=== PATIENT | male | born 1960 | race Caucasian/White ===

== ENCOUNTER 2018-04-10 18:22 | Emergency (ER) | payer MEDICAID ==
[~2018-04-10] VITALS: Ht 188 cm; Wt 120.2 kg
[~2018-04-10 18:22] MED LIST: AMLO5; ASPI81CH PO; ATOR10 PO; BP MED; CELE200 PO; DOXY100 PO; DULERA 200 MCG/13 GM INH; Daily Multiple1 EACH; Diclofenac Pota50 MG; Flonase 0.05% N16 GM INH; GLUC500; GLUCOPHAGE; HYDACE5 PO; INSDET100 SC; JANUMET XR 50-1 EAC1 PO; LEVO750 PO; LOSA50; LOSA50 PO; LOSARTAN POTAS100 MG PO; METF500; METO50 PO; MULTI VITAMIN1 EACH PO; PRED20 PO; VIIBRYD40 MG PO
[2018-04-10] MEDS ORDERED: Tylenol325 MG PO (20:39)
[2018-04-10] MEDS ORDERED: Percocet 5-3251 EACH PO (20:39)
== END 2018-04-10 21:30 | disposition home or self-care (01) ==
LOC: ER 18:22
DX: S76.111A Strain of right quadriceps muscle, fascia and tendon, initial encounter (principal); E11.9 Type 2 diabetes mellitus without complications; W17.89XA Other fall from one level to another, initial encounter; Z79.899 Other long term (current) drug therapy; Z79.2 Long term (current) use of antibiotics; Z79.4 Long term (current) use of insulin; Z79.52 Long term (current) use of systemic steroids; I25.2 Old myocardial infarction; Z79.82 Long term (current) use of aspirin; F17.290 Nicotine dependence, other tobacco product, uncomplicated
CPT/HCPCS: 29505; 73564; 99283-25

== ENCOUNTER 2018-04-19 06:06 | Day surgery (SDC) | payer OTHER ==
[~2018-04-19] VITALS: Ht 188 cm; Wt 120.4 kg
[~2018-04-19 06:06] MED LIST changes: +Percocet 5-3251 EACH PO; +Tylenol325 MG PO
[2018-04-19] MEDS ORDERED: SYNJARDY XR 251 EACH PO (07:00)
[2018-04-19] MEDS ORDERED: Effexor Xr150 MG PO (07:00)
== END 2018-04-19 10:52 | disposition home or self-care (01) ==
LOC: ORSCSDS 06:06
PROVIDERS: Orthopaedic Surgery
PROC: 0LQL0ZZ Repair Right Upper Leg Tendon, Open Approach (ICD-10-PCS; principal; 2018-04-19 07:30)
DX: S76.121A Laceration of right quadriceps muscle, fascia and tendon, initial encounter (principal); I10 Essential (primary) hypertension; E11.9 Type 2 diabetes mellitus without complications; G47.33 Obstructive sleep apnea (adult) (pediatric); F17.210 Nicotine dependence, cigarettes, uncomplicated; I25.2 Old myocardial infarction; Z79.4 Long term (current) use of insulin; Z79.899 Other long term (current) drug therapy
CPT/HCPCS: 82947; J0690; J1100; J1885; J2250; J2405; J3010

== ENCOUNTER 2018-04-21 03:29 | Emergency (ER) | payer OTHER ==
[~2018-04-21] VITALS: Ht 188 cm; Wt 120.2 kg
[~2018-04-21 03:29] MED LIST changes: +Effexor Xr150 MG PO; +SYNJARDY XR 251 EACH PO
[2018-04-21] MEDS ORDERED: METFORMIN (03:48)
[2018-04-21] MEDS ORDERED: Dazidox10 MG PO (04:27)
== END 2018-04-21 04:35 | disposition home or self-care (01) ==
LOC: ER 03:29
DX: G89.18 Other acute postprocedural pain (principal); M25.561 Pain in right knee; I25.2 Old myocardial infarction; F17.290 Nicotine dependence, other tobacco product, uncomplicated; Z79.899 Other long term (current) drug therapy
CPT/HCPCS: 99283

== ENCOUNTER 2023-01-11 12:18 | Inpatient (IN) | payer SELFPAY ==
[~2023-01-11] VITALS: Ht 188 cm; Wt 125.3 kg
[~2023-01-11 12:18] MED LIST changes: +ACET500 PO; +Dazidox10 MG PO; +METFORMIN; -MULTI VITAMIN1 EACH PO; +MULVITA PO; +Robaxin750 MG PO
[2023-01-11 13:16] LABS: BASOPHILS ABSOLUTE AUTO 0.04 K/mm3 (0.00-0.23); BASOPHILS PERCENT AUTO 1 % (0-2); EOSINOPHILS ABSOLUTE AUTO 0.23 K/mm3 (0.00-0.68); EOSINOPHILS PERCENT AUTO 3 % (0-6); Hematocrit 39.4 % (37.0-53.0); Hemoglobin 14.1 g/dL (13.5-17.5); IMMATURE GRAN ABSOLUTE AUTO 0.03 K/mm3 (0.00-0.10); IMMATURE GRAN PERCENT AUTO 0 % (0-1); LYMPHOCYTES ABSOLUTE AUTO 2.02 K/mm3 (0.84-5.20); LYMPHOCYTES PERCENT AUTO 29 % (21-46); MONOCYTES ABSOLUTE AUTO 0.55 K/mm3 (0.16-1.47); MONOCYTES PERCENT AUTO 8 % (4-13); Mean Corpuscular HGB 31.3 pg (26.0-34.0); Mean Corpuscular HGB Conc 35.8 g/dL (31.5-36.5); Mean Corpuscular Volume 88 fL (80-100); Mean Platelet Volume 10.4 fL (9.1-12.4); NEUTROPHILS PERCENT AUTO 59 % (41-73); Platelet Count 207 K/mm3 (150-400); RDW Coefficient Variation 12.3 % (11.7-14.2); RDW Standard Deviation 39.5 fL (35.1-46.3); White Blood Cell Count 6.97 K/mm3 (4.00-11.30)
[2023-01-11 13:36] LABS: Albumin, Blood 3.4 g/dL (3.4-5.0); Bilirubin, Total 0.6 mg/dL (0.1-1.0); Bun/Creatinine Ratio 15.4 (12.0-20.0); Calcium, Blood 8.9 mg/dL (8.5-10.1); Creatinine, Blood 0.78 mg/dL (0.60-1.20); Globulin, Blood 3.3 g/dL (2.2-4.0); Total Protein, Blood 6.7 g/dL (6.4-8.2)
[2023-01-11 13:50] LABS: Magnesium, Blood 1.9 mg/dL (1.6-2.4); Thyroid Stimulating Hormone 0.84 uIU/mL (0.360-4.800)
[2023-01-11 15:40] LABS: International Normalized Ratio 0.94; Prothrombin Time Results 9.9 Sec (9.7-11.5)
[2023-01-11 20:05] VITALS: BP 182/81
[2023-01-11] MEDS ORDERED: [UNRECOGNIZED DRUG - REMARK] SC (20:32)
[2023-01-11 20:40] LABS: SARS-Cov-2 (COVID-19) PCR, MMC NEGATIVE (NEGATIVE)
[2023-01-11] MEDS ORDERED: Crestor20 MG PO (20:59)
[2023-01-11] MEDS ORDERED: METF500C PO (21:00)
[2023-01-11] MEDS ORDERED: METO50 PO (21:01)
[2023-01-11] MEDS ORDERED: TRESIBA FL200 UNIT/2 (21:03)
[2023-01-12 05:31] LABS: CHOL/HDL RATIO 5.5; Cholesterol 240 mg/dL (50-200); HDL Cholesterol 44 mg/dL (>39); LDL/HDL RATIO Unable to Calculate; Low Density Lipoprotein Chol Unable to Calculate mg/dL (0-110); Triglycerides 737 mg/dL (30-160); Very Low Density Lipoprot Chol Unable to Calculate mg/dL (6-32)
--- NOTE | 2023-01-12 06:20 | NUR ---
ADMITTED FROM ED AROUND 1999 LAST NIGHT. AO, VSS, STABLE GAIT, MOSTLY CLEAR SKIN WITH A CLOSED, HEALING WOUND ON 2ND TOE ON L FOOT, PT STATES IT IS FROM TRIMMING HIS TOE NAILS. R FACIAL DROOP, NO PHYSICAL DEFICITS NOTED IN EXTREMITIES. NO CHANGES NOTED IN NEUROLOGICAL ASSESSMENTS.
[2023-01-12 07:40] VITALS: BP 178/85
[2023-01-12 15:48] VITALS: BP 181/91
--- NOTE | 2023-01-12 17:16 | NUR ---
SHIFT SUMMARY: Pt remains A&O X3 this shift. Ambulating independently. Right sided numbness/tingling remains, however pt states is improving. Right sided mouth droop remains the same. RISSA upper and lower ext without deficit. BP trending down. Blood sugars covered with ordered insulin. Education provided on diet for cardiac and diabetes. Discussed steroid given as well. Pt denies pain. Bed in locked in lowest position. Call light in reach. Will continue to monitor this shift.
[2023-01-13 04:41] VITALS: BP 182/91
[2023-01-13 05:37] LABS: Hematocrit 40.3 % (37.0-53.0); Hemoglobin 13.8 g/dL (13.5-17.5); Mean Corpuscular HGB 31.2 pg (26.0-34.0); Mean Corpuscular HGB Conc 34.2 g/dL (31.5-36.5); Mean Corpuscular Volume 91 fL (80-100); Mean Platelet Volume 10.9 fL (9.1-12.4); Platelet Count 220 K/mm3 (150-400); RDW Coefficient Variation 12.9 % (11.7-14.2); RDW Standard Deviation 42.3 fL (35.1-46.3); Red Blood Cell Count 4.43 M/mm3 (4.30-5.90); White Blood Cell Count 14.48 K/mm3 (4.00-11.30)
--- NOTE | 2023-01-13 06:01 | NUR ---
R FACIAL DROOP AND TINGLING CONTINUE, NO EXTREMITY DEFICITS, NO NEUROLOGICAL DEFICITS CHANGES COMPARED TO PREVIOUS ASSESSMENT. AO, UP AD DORINDA, PLEASANT. HYPERTENSIVE OTHERWISE VSS ON RA.
[2023-01-13 07:26] VITALS: BP 182/95
[2023-01-13 07:34] LABS: Albumin, Blood 3.3 g/dL (3.4-5.0); Bilirubin, Total 0.6 mg/dL (0.1-1.0); Bun/Creatinine Ratio 20.4 (12.0-20.0); Calcium, Blood 8.8 mg/dL (8.5-10.1); Creatinine, Blood 0.83 mg/dL (0.60-1.20); Globulin, Blood 3.4 g/dL (2.2-4.0); Potassium, Blood 3.8 mmol/L (3.5-5.5); Total Protein, Blood 6.7 g/dL (6.4-8.2)
[2023-01-13] MEDS ORDERED: ATOR40TA PO (11:03)
[2023-01-13] MEDS ORDERED: HUMULIN R100 UNIT/2 SC (11:05)
[2023-01-13] MEDS ORDERED: VALA500 PO (11:06)
[2023-01-13] MEDS ORDERED: LOSA50 PO (11:07)
[2023-01-13] MEDS ORDERED: Prednisone10 MG PO (11:10)
[2023-01-13] MEDS ORDERED: ASPI81CH PO (11:10)
--- NOTE | 2023-01-13 13:16 | NUR ---
DISCHARGE SUMMARY: Pt remains A&O throughout this shift. Ambulating independently. Right sided droop remains. Tolerating diet. VSS, increased WBC discussed with Dr. Wolfe. Pt afebrile, on oral steroids. All discharge instructions reviewed with pt and with return verbal understanding. Med needs faxed to [facility]. IV and tele dc'd. Ziopatch placed. Pt ambulated with to car.
== END 2023-01-13 13:07 | disposition home or self-care (01) | DRG 66 ==
LOC: ER 12:18 → MEDS 18:21 → ENPENDDIS 01-13 10:37 → MEDS 01-13 13:07
PROVIDERS: Internal Medicine; Nurse Practitioner Acute Care; Student in an Organized Health Care Education/Training Program; ADMIT Internal Medicine
DX: I63.81 Other cerebral infarction due to occlusion or stenosis of small artery (principal); G51.0 Bell's palsy; I10 Essential (primary) hypertension; E78.5 Hyperlipidemia, unspecified; Z68.35 Body mass index [BMI] 35.0-35.9, adult; E66.9 Obesity, unspecified; E11.65 Type 2 diabetes mellitus with hyperglycemia; I25.10 Atherosclerotic heart disease of native coronary artery without angina pectoris; F32.A Depression, unspecified; M19.90 Unspecified osteoarthritis, unspecified site; Z20.822 Contact with and (suspected) exposure to COVID-19; F17.210 Nicotine dependence, cigarettes, uncomplicated; R29.702 NIHSS score 2; Z79.4 Long term (current) use of insulin; I25.2 Old myocardial infarction; Z79.84 Long term (current) use of oral hypoglycemic drugs; Z98.890 Other specified postprocedural states
CPT/HCPCS: 36415; 70450; 70551; 80053; 80061; 82947; 83036; 83735; 84443; 85025; 85027; 85610; 92610; 93005; 93010; 93246; 93306; 93880; 96360; 96361; 96372; 99285-25; A9270; G0378; J1650; J1815; J7030; J7512; U0002

== ENCOUNTER 2023-09-02 12:46 | Emergency (ER) | payer OTHER ==
[~2023-09-02] VITALS: Ht 188 cm; Wt 122.5 kg
[~2023-09-02 12:46] MED LIST changes: +ATOR40TA PO; +Crestor20 MG PO; +HUMULIN R100 UNIT/2 SC; +METF500C PO; +Prednisone10 MG PO; +TRESIBA FL200 UNIT/2; +VALA500 PO; +[UNRECOGNIZED DRUG - REMARK] SC
[2023-09-02 13:00] VITALS: BP 183/98
== END 2023-09-02 17:02 | disposition home or self-care (01) ==
LOC: ER 12:46
DX: H49.22 Sixth [abducent] nerve palsy, left eye (principal); H50.9 Unspecified strabismus; E11.9 Type 2 diabetes mellitus without complications; I25.2 Old myocardial infarction; F17.290 Nicotine dependence, other tobacco product, uncomplicated; Z79.899 Other long term (current) drug therapy; Z79.84 Long term (current) use of oral hypoglycemic drugs; Z79.4 Long term (current) use of insulin; Z79.82 Long term (current) use of aspirin
CPT/HCPCS: 70450; 99283-25; A9270; J1885

== ENCOUNTER 2025-04-10 13:43 | Inpatient (IN) | payer OTHER ==
[~2025-04-10] VITALS: Ht 188 cm; Wt 119.7 kg
[~2025-04-10 13:43] MED LIST changes: -Effexor Xr150 MG PO; -TRESIBA FL200 UNIT/2; +TRESIBA FL200 UNIT/2 SC; +VENL150ER PO
[2025-04-10] MEDS ORDERED: Ondansetron HCl 2 MG / ML 2ML Vial IV PRN ×2 (13:55→19:00)
[2025-04-10 14:22] LABS: BASOPHILS ABSOLUTE AUTO 0.05 K/mm3 (0.00-0.23); BASOPHILS PERCENT AUTO 0 % (0-2); EOSINOPHILS ABSOLUTE AUTO 0.18 K/mm3 (0.00-0.68); EOSINOPHILS PERCENT AUTO 2 % (0-6); Hematocrit 36.2 % (37.0-53.0); Hemoglobin 12.8 g/dL (13.5-17.5); IMMATURE GRAN ABSOLUTE AUTO 0.08 K/mm3 (0.00-0.10); IMMATURE GRAN PERCENT AUTO 1 % (0-1); LYMPHOCYTES ABSOLUTE AUTO 2.90 K/mm3 (0.84-5.20); LYMPHOCYTES PERCENT AUTO 25 % (21-46); MONOCYTES ABSOLUTE AUTO 0.87 K/mm3 (0.16-1.47); MONOCYTES PERCENT AUTO 8 % (4-13); Mean Corpuscular HGB Conc 35.4 g/dL (31.5-36.5); Mean Corpuscular Volume 91 fL (80-100); NEUTROPHILS ABSOLUTE AUTO 7.59 K/mm3 (1.96-9.15); NEUTROPHILS PERCENT AUTO 65 % (41-73); NRBC ABSOLUTE 0.00 K/mm3 (0.00-0.02); NRBC Auto 0.0 /100 WBC (0.0-0.2); Platelet Count 259 K/mm3 (150-400); RDW Coefficient Variation 12.0 % (11.7-14.2); RDW Standard Deviation 40.5 fL (35.1-46.3)
[2025-04-10 14:46] LABS: Alanine Aminotransfer (ALT/SGP 36.0 U/L (12-78); Albumin, Blood 3.6 g/dL (3.4-5.0); Albumin/Globulin Ratio 0.9 (0.8-1.8); Anion Gap 11.0 mmol/L (3-11); Aspartate Aminotrans (AST/SGOT 23.0 U/L (12-37); Bilirubin, Total 0.4 mg/dL (0.1-1.0); Blood Urea Nitrogen 14.0 mg/dL (8-24); CO2, Blood 22.0 mmol/L (21-32); Calcium, Blood 8.7 mg/dL (8.5-10.1); Chloride, Blood 106.0 mmol/L (98-108); Creatinine, Blood 0.81 mg/dL (0.60-1.20); Globulin, Blood 4.0 g/dL (2.2-4.0); Glucose, Blood 212.0 mg/dL (70-99); Potassium, Blood 3.6 mmol/L (3.5-5.5); Sodium, Blood 135.0 mmol/L (136-145); Total Protein, Blood 7.6 g/dL (6.4-8.2)
[2025-04-10] MEDS ORDERED: NS 1,000 ML IV SCH ×2 (18:30→19:00)
[2025-04-10] MEDS ORDERED: Ondansetron HCl 2 MG / ML 2ML Vial IV ONE (18:30)
[2025-04-10 18:36] LABS: Prothrombin Time Results 11.5 Sec (9.7-11.5)
[2025-04-10] MEDS ORDERED: Metoclopramide HCl 5MG / ML 2ML Vial IV PRN (18:55)
[2025-04-10] MEDS ORDERED: Metoclopramide HCl 5MG / ML 2ML Vial IV ONE (19:00)
[2025-04-10] MEDS ORDERED: Insulin Human Lispro 100 Units/ML 3ML Syringe SC SCH (21:00)
[2025-04-10 21:03] LABS: U Amphetamine Screen Not Detected; U Barbituate Screen Not Detected; U Benzodiazapine Screen Not Detected; U Buprenorphine Screen Not Detected; U Cannabinoids Screen Not Detected; U Cocaine Screen Not Detected; U Methadone Screen Not Detected; U Methamphetamine Screen Not Detected; U Opiates Screen Not Detected; U Oxycodone Screen Not Detected; U Phencyclidine Screen Not Detected
[2025-04-10 22:04] VITALS: BP 175/75
[2025-04-10] MEDS ORDERED: AMLODIPINE-ATO1 EA14 PO (22:12)
[2025-04-11] MEDS ORDERED: Insulin Human Lispro 100 Units/ML 3ML Syringe SC SCH
[2025-04-11 03:14] VITALS: BP 157/77
[2025-04-11 06:07] LABS: Hematocrit 36.3 % (37.0-53.0); Hemoglobin 12.4 g/dL (13.5-17.5); Mean Corpuscular HGB Conc 34.2 g/dL (31.5-36.5); Mean Corpuscular Volume 92 fL (80-100); NRBC ABSOLUTE 0.00 K/mm3 (0.00-0.02); NRBC Auto 0.0 /100 WBC (0.0-0.2); Platelet Count 229 K/mm3 (150-400); RDW Coefficient Variation 12.3 % (11.7-14.2); RDW Standard Deviation 41.4 fL (35.1-46.3)
[2025-04-11 06:29] LABS: CHOL/HDL RATIO 4.0; Cholesterol 179 mg/dL (50-200); HDL Cholesterol 45 mg/dL (>39); LDL/HDL RATIO 1.6; Low Density Lipoprotein Chol 70 mg/dL (0-110); Triglycerides 319 mg/dL (30-160); Very Low Density Lipoprot Chol 63 mg/dL (6-32)
--- NOTE | 2025-04-11 06:32 | NUR ---
Shift Summary Patient arrived from ER around 2200 w/ at bedside. AOx4, speech slighlty mumbled and slurred, but clear enough to understand. Neuro check reveals RUE and RLE numbness w/ L>R ataxia. Patient has not gotten out of bed and, according to , unable to walk since the symptoms started. NS @ 100 continuous. Patient also had an episode of projectile vomiting w/ brownish green emesis. Wears a CPAP at night, patient was able to remove mask prior to the emesis episode. Medicated x 1 for nausea. Denies pain. Urinal at the bedside. Swallow screen still needs to be completed as patient was too sleepy last night to fully participate. Currently NPO. Awaiting ST, PT, and OT eval.
[2025-04-11 07:15] VITALS: BP 171/75
[2025-04-11 07:37] LABS: Anion Gap 10.0 mmol/L (3-11); Blood Urea Nitrogen 14.0 mg/dL (8-24); CO2, Blood 26.0 mmol/L (21-32); Calcium, Blood 8.7 mg/dL (8.5-10.1); Chloride, Blood 106.0 mmol/L (98-108); Creatinine, Blood 0.74 mg/dL (0.60-1.20); Glucose, Blood 148.0 mg/dL (70-99); Potassium, Blood 3.9 mmol/L (3.5-5.5); Sodium, Blood 138.0 mmol/L (136-145)
[2025-04-11] MEDS ORDERED: Enoxaparin 40 MG/0.4 ML SYR SC SCH (09:00)
[2025-04-11] MEDS ORDERED: Insulin Glargine-Yfgn 100 Unit/mL 3 ML SYR SC SCH (09:00)
[2025-04-11 16:16] VITALS: BP 178/79
--- NOTE | 2025-04-11 19:35 | NUR ---
SHIFT SUMMARY PT IS A/OX4. MUMBLED SPEECH WITH SIGNIFICANT IMPROVEMENT THROUGHOUT THIS SHIFT. STRENGTH IS EQUAL BILATERALLY, HOWEVER DECREASED COORDINATION TO LEFT SIDE. NS RUNNING @ 100 ML/HR. MRI COMPLETED THIS AFTERNOON. FAMILY AT BEDSIDE THROUGHOUT THIS SHIFT. ON TELE RUNNING SINUS RYTHYM IN THE 60'S. PT IS PLEASANT AND COOPERATIVE WITH CARE AND CALLS APPROPRIATLEY USING THE CALL LIGHT.
[2025-04-11 19:44] VITALS: BP 176/77
[2025-04-11 23:25] VITALS: BP 195/76
[2025-04-12] VITALS (8 sets, daily range): BP systolic 160–202; BP diastolic 70–84
[2025-04-12 07:27] LABS: BASOPHILS ABSOLUTE AUTO 0.04 K/mm3 (0.00-0.23); BASOPHILS PERCENT AUTO 0 % (0-2); EOSINOPHILS ABSOLUTE AUTO 0.11 K/mm3 (0.00-0.68); EOSINOPHILS PERCENT AUTO 1 % (0-6); Hematocrit 37.7 % (37.0-53.0); Hemoglobin 13.1 g/dL (13.5-17.5); IMMATURE GRAN ABSOLUTE AUTO 0.06 K/mm3 (0.00-0.10); IMMATURE GRAN PERCENT AUTO 1 % (0-1); LYMPHOCYTES ABSOLUTE AUTO 2.12 K/mm3 (0.84-5.20); LYMPHOCYTES PERCENT AUTO 20 % (21-46); MONOCYTES ABSOLUTE AUTO 0.86 K/mm3 (0.16-1.47); MONOCYTES PERCENT AUTO 8 % (4-13); Mean Corpuscular HGB Conc 34.7 g/dL (31.5-36.5); Mean Corpuscular Volume 95 fL (80-100); NEUTROPHILS ABSOLUTE AUTO 7.64 K/mm3 (1.96-9.15); NEUTROPHILS PERCENT AUTO 71 % (41-73); NRBC ABSOLUTE 0.00 K/mm3 (0.00-0.02); NRBC Auto 0.0 /100 WBC (0.0-0.2); Platelet Count 227 K/mm3 (150-400); RDW Coefficient Variation 12.1 % (11.7-14.2); RDW Standard Deviation 42.3 fL (35.1-46.3)
--- NOTE | 2025-04-12 07:27 | NUR ---
SHIFT SUMMARY PT A/Ox4, NO ACUTE CHANGES WITH NEURO CHECKS, LUE COORDINATION DEFICIT NOTED. STRENGTH EQUAL BILATERALLY. TELE IN PLACE, NSR. PT DENIES PAIN, NAUSEA, SOB. MD CONTACTED FOR ELEVATED SBP, PRN HYDRALAZINE GIVEN. OTHER VSS ON RA, WITH CPAP AT NIGHT.
[2025-04-12 07:51] LABS: Anion Gap 6.0 mmol/L (3-11); Blood Urea Nitrogen 14.0 mg/dL (8-24); CO2, Blood 28.0 mmol/L (21-32); Calcium, Blood 8.6 mg/dL (8.5-10.1); Chloride, Blood 106.0 mmol/L (98-108); Creatinine, Blood 0.91 mg/dL (0.60-1.20); Glucose, Blood 146.0 mg/dL (70-99); Potassium, Blood 3.6 mmol/L (3.5-5.5); Sodium, Blood 136.0 mmol/L (136-145)
[2025-04-12] MEDS ORDERED: Metoclopramide HCl 5MG / ML 2ML Vial IV PRN (08:20)
[2025-04-12] MEDS ORDERED: Multivitamins 1 Tab PO SCH (09:00)
[2025-04-12] MEDS ORDERED: Insulin Glargine-Yfgn 100 Unit/mL 3 ML SYR SC SCH (09:00)
--- NOTE | 2025-04-12 18:37 | NUR ---
SHIFT SUMMARY PATIENT ALERT AND INTERACTIVE. PATIENT NOTED TO HAVE SPASTIC MOVEMENT OF L EXTREMETIES AND SLIGHT WEAKNESS OF R SIDE. HEAVY SPEACH WITH GOOD SWALLOW. PATIENT UP TO CHAIR AND BR FOR SHOWER. PATIENT NEEDING FREQUENT CUES TO LIFT FEET WHEN WALKING. FAMILY AND PATIENT EDUCATED RELATED TO STROKE AND RECOVERY. PATIENT TO TRANSITION TO REHAB. PATIENT ACCEPTED TO A FACILITY IN [place].
[2025-04-12] MEDS ORDERED: Insulin Human Lispro 100 Units/ML 3ML Syringe SC SCH (21:00)
[2025-04-13 05:15] VITALS: BP 186/78
[2025-04-13 05:50] LABS: BASOPHILS ABSOLUTE AUTO 0.05 K/mm3 (0.00-0.23); BASOPHILS PERCENT AUTO 1 % (0-2); EOSINOPHILS ABSOLUTE AUTO 0.21 K/mm3 (0.00-0.68); EOSINOPHILS PERCENT AUTO 2 % (0-6); Hematocrit 38.1 % (37.0-53.0); Hemoglobin 13.1 g/dL (13.5-17.5); IMMATURE GRAN ABSOLUTE AUTO 0.07 K/mm3 (0.00-0.10); IMMATURE GRAN PERCENT AUTO 1 % (0-1); LYMPHOCYTES ABSOLUTE AUTO 2.40 K/mm3 (0.84-5.20); LYMPHOCYTES PERCENT AUTO 24 % (21-46); MONOCYTES ABSOLUTE AUTO 0.89 K/mm3 (0.16-1.47); MONOCYTES PERCENT AUTO 9 % (4-13); Mean Corpuscular HGB Conc 34.4 g/dL (31.5-36.5); Mean Corpuscular Volume 93 fL (80-100); NEUTROPHILS ABSOLUTE AUTO 6.28 K/mm3 (1.96-9.15); NEUTROPHILS PERCENT AUTO 64 % (41-73); NRBC ABSOLUTE 0.00 K/mm3 (0.00-0.02); NRBC Auto 0.0 /100 WBC (0.0-0.2); Platelet Count 227 K/mm3 (150-400); RDW Coefficient Variation 11.9 % (11.7-14.2); RDW Standard Deviation 40.4 fL (35.1-46.3)
[2025-04-13 06:26] LABS: Anion Gap 9.0 mmol/L (3-11); Blood Urea Nitrogen 17.0 mg/dL (8-24); CO2, Blood 27.0 mmol/L (21-32); Calcium, Blood 8.4 mg/dL (8.5-10.1); Chloride, Blood 104.0 mmol/L (98-108); Creatinine, Blood 0.78 mg/dL (0.60-1.20); Glucose, Blood 138.0 mg/dL (70-99); Potassium, Blood 3.6 mmol/L (3.5-5.5); Sodium, Blood 136.0 mmol/L (136-145)
--- NOTE | 2025-04-13 06:28 | NUR ---
SHIFT SUMMARY PT A/Ox4, ELEVATED SBP, PRN HYDRALAZINE GIVEN, OTHER VSS ON RA WITH CPAP USE OVERNIGHT. PT DENIES PAIN, NAUSEA, SOB. PT REPORTS CONTINUED NUMB/TINGLING ON R SIDE. L SIDE COORDINATION DEFICIT NOTED WITH FINE MOTOR SKILLS. MILDLY SLURRED WORDS. SPOUSE ROOMING IN. SAFETY PRECAUTIONS IN PLACE, CALL LIGHT IN REACH.
[2025-04-13 07:51] VITALS: BP 176/76
--- NOTE | 2025-04-13 17:59 | NUR ---
NO ACUTE CHANGES, 2 PERSON ASSIST WITH FWW AND GAIT BELT, FAMILY HELPFUL. ALEXANDR FOR INSURANCE APPROVAL FOR PATIENT TO BE TRANSFERRED TO [facility]. PATIENT ALERT AND OREINTED X3, EQUAL CHINA DECORATOR, REPORTS NUMBNESS AND TINGLING ON RIGHT SIDE ARM AND LEG. BED ALARM ON, EATING DINNER NOW, NO BS COVERAGE NEEDED, CALL LIGHT WITH IN REACH, WILL RELAY TO PM RN
[2025-04-13 19:54] VITALS: BP 176/88
[2025-04-13 23:45] VITALS: BP 175/83
[2025-04-14 04:23] VITALS: BP 161/84
--- NOTE | 2025-04-14 04:48 | NUR ---
SHIFT SUMMARY PT A&Ox4 AND PLEASANT. PT VERY UNSTEADY ON FEET WHEN MOVING FROM CHAIR TO BED AT START OF SHIFT. NO C/O PAIN. PT USING HOME CPAP AT NIGHT. PT ABLE TO SLEEP MOST OF THE NIGHT. BP REMAINS ELEVATED WITH A SYSTALIC AROUND 175 BUT DID NOT MEET PAREMETERS TO GIVE HYDRALAZINE. NO ACUTE CHANGES. BED ALARM ON. BED IN LOWEST POSITION AND CALL LIGHT IN REACH.
[2025-04-14 07:39] VITALS: BP 157/82
[2025-04-14] MEDS ORDERED: Mag Hydrox/Al Hydrox/Simeth 18 ML,Lidocaine 2% Viscous Soln 9 ML,Atropine/Scopalam/Hyos... PO ONE (08:30)
[2025-04-14 12:02] VITALS: BP 162/87
[2025-04-14] MEDS ORDERED: ATOR80 PO (13:42)
[2025-04-14] MEDS ORDERED: CLOP75 PO (13:42)
[2025-04-14] MEDS ORDERED: BASAGLAR K100 UNIT/1 SC (13:43)
--- NOTE | 2025-04-14 14:22 | NUR ---
DISCHARGE PT AOX4, COOPERATIVE, ABLE TO MAKE NEEDSKOWN. PT IS MAX 2 PERSON ASSIST FOR TRANSFERS. DURING TRANSFER TO [facility], PT DID HAVE 2 INSTANCES WHERE PT ALMOST LANDED ON THE GROUND IF EMS AND THIS RN DID NOT SUPPORT PT IN AMBULATING. TOLERATING MEDICATIONS. IV DC'D BY THIS RN. AWAITING CASE MANAGMENT TO GIVE THIS RN A PHONE NUMBER TO GIVE REPORT AT [facility]. BELONGINGS WENT WITH PT AND ALSO FAMILY MEMBER.
== END 2025-04-14 14:14 | DRG 65 ==
LOC: ER 13:43 → MEDS 18:53 → ENPENDDIS 04-14 12:16 → MEDS 04-14 14:14
PROVIDERS: Emergency Medicine; Nurse Practitioner Acute Care; Student in an Organized Health Care Education/Training Program; ADMIT Internal Medicine
DX: I63.89 Other cerebral infarction (principal); G81.94 Hemiplegia, unspecified affecting left nondominant side; I67.1 Cerebral aneurysm, nonruptured; E11.9 Type 2 diabetes mellitus without complications; I10 Essential (primary) hypertension; E78.5 Hyperlipidemia, unspecified; G51.0 Bell's palsy; R47.1 Dysarthria and anarthria; R29.703 NIHSS score 3; R47.81 Slurred speech; Z87.891 Personal history of nicotine dependence
CPT/HCPCS: 36415; 70450; 70496; 70498; 70551; 80048; 80053; 80061; 82947; 83036; 83690; 85025; 85027; 85610; 85730; 92610; 93005; 93010; 93306; 94762; 96374; 96376; 97110; 97112; 97162; 97165; 97530; 97535; 99285-25; A9270; J1650; J1815; J2405; J2765; J7030; Q9967